=== PATIENT | female | born 1935 | race African-American/Black ===

== ENCOUNTER 2019-07-27 16:15 | Emergency (ER) | payer OTHER ==
--- NOTE | 2019-07-27 17:19 | EDPHYS ---
Physician Documentation [facility] Name: Gila Hernandez Age: 83 yrs Sex: Female : 1935 Arrival Date: 07/27/2019 Time: 16:20 Bed 19 Private MD: ED Physician Daryn Stroud HPI: 07/27 17:18 This 83 yrs old Black Female presents to ER via Wheelchair with complaints of Toe kb Injury. 17:21 The patient presents with an injury, pain, that is acute, swelling, tenderness. The kb complaints affect the right second toe. Context: The problem was sustained at home, resulted from stubbing toe on furniture. the patient can fully bear weight, the patient is able to ambulate. Onset: The symptoms/episode began/occurred 2 day(s) ago. Modifying factors: The symptoms are alleviated by nothing, the symptoms are aggravated by nothing. Associated signs and symptoms: Pertinent positives: swelling. Severity of symptoms: At their worst the symptoms were moderate, in the emergency department the symptoms are unchanged. The patient has not experienced similar symptoms in the past. The patient has not recently seen a physician. Historical: - Allergies: 16:23 No Known Allergies; la1 - PMHx: 16:23 Hypertension; la1 - Immunization history:: Adult Immunizations up to date. - Social history:: Smoking status: Patient/guardian denies using tobacco. - Ebola Screening: : No symptoms or risks identified at this time. ROS: 17:20 Constitutional: Negative for fever, chills, and weight loss, Cardiovascular: Negative kb for chest pain, palpitations, and edema, Respiratory: Negative for shortness of breath, cough, wheezing, and pleuritic chest pain, Abdomen/GI: Negative for abdominal pain, nausea, vomiting, diarrhea, and constipation, Skin: Negative for injury, rash, and discoloration, Neuro: Negative for headache, weakness, numbness, tingling, and seizure. 17:20 MS/extremity: Positive for pain, swelling, tenderness. Exam: 17:20 Constitutional: This is a well developed, well nourished patient who is awake, alert, kb and in no acute distress. Head/Face: Normocephalic, atraumatic. Neck: Trachea midline, no thyromegaly or masses palpated, and no cervical lymphadenopathy. Supple, full range of motion without nuchal rigidity, or vertebral point tenderness. No Meningismus. Chest/axilla: Normal chest wall appearance and motion. Nontender with no deformity. No lesions are appreciated. Cardiovascular: Regular rate and rhythm with a normal S1 and S2. No gallops, murmurs, or rubs. Normal PMI, no JVD. No pulse deficits. Respiratory: Lungs have equal breath sounds bilaterally, clear to auscultation and percussion. No rales, rhonchi or wheezes noted. No increased work of breathing, no retractions or nasal flaring. Abdomen/GI: Soft, non-tender, with normal bowel sounds. No distension or tympany. No guarding or rebound. No evidence of tenderness throughout. Skin: Warm, dry with normal turgor. Normal color with no rashes, no lesions, and no evidence of cellulitis. Neuro: Awake and alert, GCS 15, oriented to person, place, time, and situation. Cranial nerves II-XII grossly intact. Motor strength 5/5 in all extremities. Sensory grossly intact. Cerebellar exam normal. Normal gait. 17:20 Musculoskeletal/extremity: Extremities: grossly normal except: noted in the right second toe: pain, swelling, tenderness, ROM: intact in all extremities, Circulation is intact in all extremities. Sensation intact. Weight bearing: able to fully bear weight. Vital Signs: 16:23 BP 137 / 89; Pulse 78; Resp 16; Temp 98.3; Pulse Ox 96% on R/A; Weight 74.84 kg; Height la1 5 ft. 8 in. (172.72 cm); 18:17 BP 128 / 78; Pulse 76; Resp 18; Pulse Ox 97% on R/A; ph 16:23 Body Mass Index 25.09 (74.84 kg, 172.72 cm) la1 MDM: 16:26 Patient medically screened. kb 17:15 Data reviewed: vital signs, nurses notes. Data interpreted: Pulse oximetry: on room air kb is 96 %. Interpretation: normal. Counseling: I had a detailed discussion with the patient and/or guardian regarding: the historical points, exam findings, and any diagnostic results supporting the discharge/admit diagnosis, radiology results, the need for outpatient follow up, a family practitioner, to return to the emergency department if symptoms worsen or persist or if there are any questions or concerns that arise at home. 07/27 16:39 Order name: Foot Right 3 View XRAY; Complete Time: 18:08 kb 07/27 17:16 Order name: Post-op shoe; Complete Time: 18:05 kb Administered Medications: No medications were administered Disposition: 07/28 05:53 Co-signature as Attending Physician, Daryn Stroud MD I agree with the assessment and gilbert plan of care. Disposition: 07/27/19 17:18 Discharged to Home. Impression: Displaced fracture of proximal phalanx of right lesser toe(s) - second toe. - Condition is Stable. - Discharge Instructions: Toe Fracture, [id number]. - Prescriptions for Diclofenac Sodium 75 mg Oral Tablet, Delayed Release (E.C.) - take 1 tablet by ORAL route 2 times per day As needed; 30 tablet. - Medication Reconciliation Form, Thank You Letter, Antibiotic Education, Prescription Opioid Use form. - Follow up: Emergency Department; When: As needed; Reason: Worsening of condition. Follow up: Private Physician; When: 2 - 3 days; Reason: Recheck today's complaints, Continuance of care, Re-evaluation by your physician. Signatures: Dispatcher [employer] EDMS Zohra Lux, RESEARCH AND DEVELOPMENT DIRECTOR-C RESEARCH AND DEVELOPMENT DIRECTOR-Daryn Hayden MD MD cha Attema, Lee RN RN laElzbieta Mccollum RN RN ph Corrections: (The following items were deleted from the chart) 07/27 18:18 17:18 07/27/2019 17:18 Discharged to Home. Impression: Displaced fracture of proximal ph phalanx of right lesser toe(s) - second toe. Condition is Stable. Forms are Medication Reconciliation Form, Thank You Letter, Antibiotic Education, Prescription Opioid Use. Follow up: Emergency Department; When: As needed; Reason: Worsening of condition. Follow up: Private Physician; When: 2 - 3 days; Reason: Recheck today's complaints, Continuance of care, Re-evaluation by your physician. kb
--- NOTE | 2019-07-27 17:19 | ER ---
Nurse's Notes [facility] Name: Gila Hernandez Age: 83 yrs Sex: Female : 1935 Arrival Date: 07/27/2019 Time: 16:20 Bed 19 Private MD: Diagnosis: Displaced fracture of proximal phalanx of right lesser toe(s)-second toe Presentation: 07/27 16:23 Presenting complaint: Patient states: I hit my toes on my right foot on a box on the la1 floor. Transition of care: patient was not received from another setting of care. Onset of symptoms was July 27, 2019. Risk Assessment: Do you want to hurt yourself or someone else? Patient reports no desire to harm self or others. Initial Sepsis Screen: Does the patient meet any 2 criteria? No. Patient's initial sepsis screen is negative. Does the patient have a suspected source of infection? No. Patient's initial sepsis screen is negative. Care prior to arrival: None. 16:23 Method Of Arrival: Wheelchair la1 16:23 Acuity: IRIS 4 la1 Historical: - Allergies: 16:23 No Known Allergies; la1 - PMHx: 16:23 Hypertension; la1 - Immunization history:: Adult Immunizations up to date. - Social history:: Smoking status: Patient/guardian denies using tobacco. - Ebola Screening: : No symptoms or risks identified at this time. Screenin:36 Abuse screen: Denies threats or abuse. Denies injuries from another. Nutritional ph screening: No deficits noted. Tuberculosis screening: No symptoms or risk factors identified. Fall Risk None identified. Assessment: 16:36 General: Appears in no apparent distress. comfortable, well groomed, Behavior is calm, ph cooperative, appropriate for age. Pain: Complains of pain in right second toe, right third toe and right fourth toe. Neuro: Level of Consciousness is awake, alert, obeys commands, Oriented to person, place, time, situation. Cardiovascular: Capillary refill < 3 seconds in bilateral fingers Patient's skin is warm and dry. Respiratory: Airway is patent Respiratory effort is even, unlabored, Respiratory pattern is regular, symmetrical. Derm: Skin is intact, Skin is pink, warm \T\ dry. Musculoskeletal: Circulation, motion, and sensation intact. Range of motion: intact in all extremities, Swelling present in right second toe, right third toe and right fourth toe. Vital Signs: 16:23 BP 137 / 89; Pulse 78; Resp 16; Temp 98.3; Pulse Ox 96% on R/A; Weight 74.84 kg; Height la1 5 ft. 8 in. (172.72 cm); 18:17 BP 128 / 78; Pulse 76; Resp 18; Pulse Ox 97% on R/A; ph 16:23 Body Mass Index 25.09 (74.84 kg, 172.72 cm) la1 ED Course: 16:20 Patient arrived in ED. mr 16:23 Triage completed. la1 16:24 Arm band placed on left wrist. la1 16:25 Zohra Lux FNP-C [facility]. kb 16:25 Daryn Stroud MD is Attending Physician. kb 16:35 Elzbieta Carey, RN is Primary Nurse. ph 17:04 Patient has correct armband on for positive identification. Bed in low position. Call ph light in reach. Side rails up X 1. 17:04 No provider procedures requiring assistance completed. Patient did not have IV access ph during this emergency room visit. 17:10 Foot Right 3 View XRAY In Process Unspecified. EDMS 18:06 Ortho shoe applied to right foot. [id number] Administered Medications: No medications were administered Outcome: 17:18 Discharge ordered by . kb 18:15 Discharged to home ambulatory, with family. ph 18:15 Condition: good 18:15 Discharge instructions given to patient, family, Instructed on discharge instructions, follow up and referral plans. medication usage, Demonstrated understanding of instructions, follow-up care, medications, Prescriptions given X 1. 18:18 Patient left the ED. ph Signatures: Dispatcher [employer] EDAZ Zohra Lux FNP-C FNP-Ckb Elaine Jordan, Will, RN RN njElzbieta Mccollum, Jeanne Mcgregor RN, ph [facility]
--- NOTE | 2019-07-27 18:06 | RAD REPORT ---
EXAM DESCRIPTION: RAD - Foot Right 3 View - 07/27/2019 5:13 pm CLINICAL HISTORY: Foot pain, blunt force trauma to the toes COMPARISON: None. FINDINGS: An oblique fracture is present through the shaft and head of the second proximal phalanx. No significant distraction or angulation deformity. Fracture line does extend into the PIP joint. No other fracture changes are present. Old fracture changes are present in the fifth metatarsal. Bunion deformity is present at first MTP joint. There are prominent soft tissues along the medial margin. No soft tissue calcification or bone erosion. Degenerative changes are present at the tarsal metatarsal articulation. This is most prominent along the dorsal margin. Small plantar spur is present. No air or foreign body in the soft tissues. IMPRESSION: Fracture of the second proximal phalanx as detailed. No significant distraction or angul ation. Additional degenerative changes and old trauma changes are present as detailed.
== END 2019-07-27 18:18 | disposition home or self-care (01) ==
LOC: ER 16:15
DX: S92.511A Displaced fracture of proximal phalanx of right lesser toe(s), initial encounter for closed fracture (principal); W22.8XXA Striking against or struck by other objects, initial encounter; Y93.9 Activity, unspecified; Y92.9 Unspecified place or not applicable
CPT/HCPCS: 99283